=== PATIENT | male | born 1960 | race Asian ===

== ENCOUNTER 2018-10-06 22:46 | Emergency (ER) | payer OTHER ==
[~2018-10-06] VITALS: Ht 167.6 cm; Wt 56.8 kg
[2018-10-06] MEDS ORDERED: METF-960 PO (22:57)
[2018-10-06 23:09] LABS: GLUCOSE,POINT OF CARE 249 MG/DL (70-110)
[2018-10-07 02:15] VITALS: BP 142/81
== END 2018-10-07 02:31 | disposition home or self-care (01) ==
LOC: EMS 22:49
DX: F10.129 Alcohol abuse with intoxication, unspecified (principal); E11.9 Type 2 diabetes mellitus without complications; I10 Essential (primary) hypertension; Z79.84 Long term (current) use of oral hypoglycemic drugs; Y90.8 Blood alcohol level of 240 mg/100 ml or more
CPT/HCPCS: 36415; 82962; 99283; G0480